=== PATIENT | male | born 1995 | race Hispanic/Latino ===

== ENCOUNTER 2021-04-21 14:01 | Emergency (ER) | payer SELFPAY ==
[2021-04-21] MEDS ORDERED: Morphine 4 MG/ML VIAL ONE (14:18)
[2021-04-21] MEDS ORDERED: Ondansetron PF 4 MG/2 ML Vial ONE (14:19)
[2021-04-21] MEDS ORDERED: Thiamine HCl 200 MG/2 ML VIAL ONE (14:19)
[2021-04-21 15:33] LABS: #Basophils 0.1 10x3/uL (0.0-0.2); #Monocytes 0.7 10x3/uL (0.0-1.1); %Basophils 0.4 % (0.0-2.0); %Lymphocytes 5.4 % (18.0-47.0); %Neutrophils 88.8 % (40.0-75.0); Hemoglobin 16.1 g/dL (13.5-17.5); Mean Corpuscular HGB CONC 35.3 g/dL (32.0-36.0); Mean Corpuscular Hemoglobin 31.6 pg (27.0-33.0); Mean Corpuscular Volume 89.6 fl (81.2-95.1); Mean Platelet Volume 9.8 fl (7.4-10.4); Platelet Count 269 10x3/uL (150-450); RBC Distribution Width 11.2 % (11.5-14.5); Red Blood Cell (RBC) Count 5.09 10x6/uL (4.32-5.72); White Blood Cell (WBC) Count 13.5 10x3/uL (3.5-10.5)
[2021-04-21 15:47] LABS: Acetaminophen Less than 6.0 mcg/mL (10.0-30.0); Alcohol 210 mg/dL (Less than 10); Salicylate Less than 8.0 mg/dL (15.0-30.0)
[2021-04-21 15:50] LABS: ALT (SGPT) 22 U/L (8-55); AST (SGOT) 22 U/L (5-34); Alkaline Phosphatase 103 U/L (40-110); Anion Gap 20 mmol/L (10-20); BUN (Urea Nitrogen) 10 mg/dL (8.9-20.6); Bilirubin, Total 0.8 mg/dL (0.2-1.2); CK (CPK) 137 U/L (30-200); Calc. Creatinine Clearance 0 mL/min (70-130); Calcium 7.8 mg/dL (7.8-10.44); Carbon Dioxide 25 mmol/L (22-29); Chloride 99 mmol/L (98-107); Globulin 2.9 g/dL (2.4-3.5); Glucose 127 mg/dL (70-105); Lipase 391 U/L (8-78); Potassium 3.8 mmol/L (3.5-5.1); Protein, Total 6.9 g/dL (6.0-8.3); Sodium 140 mmol/L (136-145)
[2021-04-21] MEDS ORDERED: diphenhydrAMINE 50 MG/ML VIAL ONE (19:53)
[2021-04-21] MEDS ORDERED: Acetaminophen 500 MG TAB ONE (23:09)
[2021-04-22] MEDS ORDERED: Acetaminophen 500 MG TAB ONE (05:58)
== END 2021-04-22 08:31 | disposition home or self-care (01) ==
LOC: CSHERS 14:01
DX: K86.1 Other chronic pancreatitis (principal); F10.10 Alcohol abuse, uncomplicated; F17.210 Nicotine dependence, cigarettes, uncomplicated
CPT/HCPCS: 36415; 71045; 74177; 80053; 80307; 82550; 83690; 84484; 85025; 93005; 96374; 96375; J1200; J2270; J2405; J3411

== ENCOUNTER 2021-11-17 21:13 | Emergency (ER) | payer SELFPAY ==
[~2021-11-17 21:13] MED LIST: Iopamidol 300 61% 100 ML VIAL FS ONE
[2021-11-17] MEDS ORDERED: Ondansetron PF 4 MG/2 ML Vial ONE (21:39)
[2021-11-17] MEDS ORDERED: Ketorolac Tromethamine 30 MG/ML VIAL ONE (21:39)
[2021-11-17] MEDS ORDERED: Pantoprazole 40 MG VIAL ONE (21:41)
[2021-11-17 21:46] LABS: #Basophils 0.1 10x3/uL (0.0-0.2); #Monocytes 0.3 10x3/uL (0.0-1.1); #Neutrophils 3.9 10x3/uL (1.5-8.4); %Basophils 1.7 % (0.0-2.0); %Eosinophils 0.3 % (0.0-6.0); %Lymphocytes 43.4 % (18.0-47.0); %Monocytes 3.9 % (0.0-10.0); %Neutrophils 50.6 % (40.0-75.0); Hemoglobin 14.4 g/dL (13.5-17.5); Mean Corpuscular HGB CONC 34.1 g/dL (32.0-36.0); Mean Corpuscular Hemoglobin 26.8 pg (27.0-33.0); Mean Corpuscular Volume 78.4 fl (81.2-95.1); Mean Platelet Volume 10.1 fl (7.4-10.4); Platelet Count 436 10x3/uL (150-450); RBC Distribution Width 15.5 % (11.5-14.5); Red Blood Cell (RBC) Count 5.38 10x6/uL (4.32-5.72); White Blood Cell (WBC) Count 7.8 10x3/uL (3.5-10.5)
[2021-11-17 21:54] LABS: ALT (SGPT) 32 U/L (8-55); AST (SGOT) 26 U/L (5-34); Albumin 4.8 g/dL (3.5-5.0); Alkaline Phosphatase 103 U/L (40-110); Anion Gap 23 mmol/L (10-20); BUN (Urea Nitrogen) 6 mg/dL (8.9-20.6); Bilirubin, Total 0.5 mg/dL (0.2-1.2); Calc. Creatinine Clearance 0 mL/min (70-130); Calcium 9.3 mg/dL (7.8-10.44); Carbon Dioxide 22 mmol/L (22-29); Chloride 99 mmol/L (98-107); Globulin 3.4 g/dL (2.4-3.5); Glucose 102 mg/dL (70-105); Lipase 23 U/L (8-78); Potassium 3.5 mmol/L (3.5-5.1); Protein, Total 8.2 g/dL (6.0-8.3); Sodium 140 mmol/L (136-145)
[2021-11-17 23:12] LABS: Actual Bicarbonate (HCO3v) 22 mEq/L (22-28); Base Excess -1.7 mEq/L (-2.0 to +3.0); Calcium, Ionized (venous) 1.01 mmol/L (1.16-1.32); Chloride (VBG) 107 mmol/L (98-106); Critical Notified By: CP.PH; Hemoglobin (Hb) 12.6 g/dL (13.2-17.3); Potassium (VBG) 3.73 mmol/L (3.70-5.30); Puncture Site Other Site; Sodium 141.5 mmol/L (133-146); pH (venous) 7.44 (7.32-7.43)
[2021-11-18] MEDS ORDERED: Morphine 4 MG/ML VIAL ONE (00:28)
[2021-11-18 00:46] LABS: SARS-CoV-2 NAA Rapid Test Not Detected (NotDetected)
== END 2021-11-18 00:49 | disposition short-term general hospital (02) ==
LOC: CSHERS 21:13
DX: E87.2 Acidosis (principal); F10.988 Alcohol use, unspecified with other alcohol-induced disorder; R74.02 Elevation of levels of lactic acid dehydrogenase [LDH]
CPT/HCPCS: 36415; 71045; 74177; 76705; 80053; 82805; 83605; 83690; 85025; 93005; 96361; 96374; 96375; C9113; J1885; J2270; J2405; Q9967; U0002